=== PATIENT | male | born 1965 | race Caucasian/White ===

== ENCOUNTER 2018-04-14 12:30 | Emergency (ER) | payer BC, SELFPAY ==
[2018-04-14 12:37] VITALS: BP 114/73; PULSE 74; RESP 20; TEMP 36.5; O2SAT 98
[2018-04-14] MEDS: oxyCODONE 5 MG TAB PO ×2 (13:10→16:15)
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
[2018-04-14 13:33] LABS: Abs Immature Grans 0.02 k/cumm (0.0-0.09); Absolute Basophil Count 0.02 k/cumm (0.0-0.2); Absolute Eosinophil Count 0.18 k/cumm (0.0-0.7); Absolute Lymphocyte Count 1.27 k/cumm (1.2-3.4); Absolute Monocyte Count 0.43 k/cumm (0.11-0.7); Basophils % 0.4; Eosinophils % 3.4; HGB 13.8 g/dL (13.5-17.5); Immature Grans % 0.4; Lymphocytes % 23.9; Mean Corp. HGB Concentration 33.7 g/dL (32.0-36.0); Mean Corpuscular Hemoglobin 30.3 pg (27.0-33.0); Mean Corpuscular Volume 90.1 fL (80-95); Mean Platelet Volume 10.1 fL (8.0-11.0); Monocytes % 8.1; Neutrophils % 63.8; Platelet Count 161 x1000/uL (130-400); RBC 4.55 m/cumm (4.50-6.00); RBC Distribution Width 12.7 % (11.8-14.1); White Blood Cell Count 5.32 k/cumm (4.4-10.8)
[2018-04-14 13:53] LABS: ALT 33 U/L (12-78); AST 20 U/L (15-37); Albumin 3.5 g/dL (3.4-5.0); Alkaline Phosphatase 73 U/L (46-116); BUN 17 mg/dL (7-18); Bilirubin, Total 0.4 mg/dL (0.2-1.0); CREATININE 0.95 mg/dL (0.70-1.30); Calcium 8.9 mg/dL (8.5-10.1); Chloride 103 mmol/L (98-107); Glucose 95 mg/dL (70-100); Magnesium 1.9 mg/dL (1.8-2.4); Potassium 4.3 mmol/L (3.5-5.1); Sodium 137 mmol/L (136-145); Total Protein 6.6 g/dL (6.4-8.2); Troponin I < 0.02 ng/mL (0.00-0.06)
--- NOTE | 2018-04-14 15:27 | DI.VRAD_ITS ---
EXAM: XR Left Ribs, 2 Views EXAM DATE/TIME: 04/14/2018 1:49 PM CLINICAL HISTORY: 52 years old, male; Injury or trauma; Fall; Initial encounter; Blunt trauma (contusions or hematomas); Rib area, left side TECHNIQUE: XR Left ribs 2 views. COMPARISON: No relevant prior studies available. FINDINGS: Bones/joints: Normal. Soft tissues: Normal. IMPRESSION: No acute findings. EXAM: XR Chest, 2 Views EXAM DATE/TIME: 04/14/2018 1:49 PM CLINICAL HISTORY: 52 years old, male; Injury or trauma; Fall; Initial encounter; Blunt trauma (contusions or hematomas); Rib area, left side TECHNIQUE: XR of the chest, 2 views. COMPARISON: No relevant prior studies available. FINDINGS: Lungs: Unremarkable. No consolidation. Pleural space: Unremarkable. No pleural effusion. No pneumothorax. Heart/Mediastinum: Unremarkable. No cardiomegaly. Bones/joints: Unremarkable for patient's age. IMPRESSION: No acute findings. Dictated and Authenticated by: Sameer Burrell MD. Ordering:SHERIN ROYAL MD
[2018-04-14 16:20] VITALS: BP 109/72; PULSE 69; RESP 16; TEMP 36.5; O2SAT 97
== END 2018-04-14 16:24 | disposition home or self-care (01) ==
PROVIDERS: Emergency Provider Physician Assistant
DX: S20.212A Contusion of left front wall of thorax, initial encounter (principal); V18.0XXA Pedal cycle driver injured in noncollision transport accident in nontraffic accident, initial encounter; Y93.55 Activity, bike riding
CPT/HCPCS: 80053; 93005; 99284; 71046; 71100; 83735; 84484; 85025; 93010